=== PATIENT | female | born 1980 | race Caucasian/White ===

== ENCOUNTER → 2017-08-14 | Outpatient (CLI) | payer BC, OTHER ==
[~2017-08-14] MED LIST: CYCL10TA9 PO; MODA200T PO; MULT-974 PO; NAPR-243 PO; SERT50TA PO
--- NOTE | 2017-08-14 22:35 | Diagnostic Imaging Report ---
Bilateral diagnostic mammogram. Tomography is performed. The current study was also evaluated with a Computer Aided Detection (CAD) system. COMPARISON: Left breast mammogram from 02/11/2015. No comparison on the right side. INDICATION: Left breast pain. FINDINGS: The breasts are composed of extremely dense parenchyma which would decrease mammographic sensitivity. Area of asymmetry in the upper aspect of the MLO view demonstrates no definite underlying abnormality based on focal compression view. No definite mass, architectural distortion, or suspicious cluster of calcifications. IMPRESSION: Extremely dense breasts with no definite underlying mass. Ultrasound evaluation pending. ACR BI-RADS Category 0: Incomplete. (Needs additional imaging evaluation). Result letter will be mailed to the patient. Note: At least 10% of breast cancer is not imaged by mammography. Dictated by: Dictated on workstation # [id number]
--- NOTE | 2017-08-14 22:57 | Diagnostic Imaging Report ---
EXAM: Left breast ultrasound. INDICATION: Left chest pain. FINDINGS: The 4 quadrants and central retroareolar regions of the left breast were scanned with no definite abnormality seen. IMPRESSION: Negative study. Clinical followup of the area of pain recommended. BI-RADS 1. ACR BI-RADS Category 1: Negative. Result letter will be mailed to the patient. Note: At least 10% of breast cancer is not imaged by mammography. Dictated by: Dictated on workstation # [id number]
== END ==
LOC: RAD 08:38
PROVIDERS: ATTEND Nurse Practitioner Family
DX: R92.2 Inconclusive mammogram (principal); N64.4 Mastodynia
CPT/HCPCS: 76641; 77066

== ENCOUNTER 2023-02-24 21:24 | Emergency (ER) | payer BC ==
[~2023-02-24 21:24] MED LIST changes: +FLUO40CA12 PO
--- NOTE | 2023-02-24 21:59 | ED General ---
General Stated Complaint: SOA Source of Information: Patient, Other (MOTHER) History of Present Illness Date Seen by Provider: Feb 24, 2023 Time Seen by Provider: 21:50 Allergies and Home Medications Allergies Coded Allergies: Penicillins (Unverified Allergy, Severe, 06/24/14) ANAPHYLAXIS Patient Home Medication List Cyclobenzaprine HCl (Cyclobenzaprine HCl) 10 Mg Tablet, 10 MG PO Q8H PRN for SPASMS Prescribed by: BRISA CID on 02/24/232258 Cyclobenzaprine Hcl (Cyclobenzaprine Hcl) 10 Mg Tablet, 1 EACH PO Q8HR Prescribed by: BRISA CID on 06/24/142116 Fluoxetine HCl (Prozac) 40 Mg Capsule, 80 MG PO DAILY, (Reported) Entered as Reported by: PEGGY PENNY on 10/17/191720 Ketorolac Tromethamine (Ketorolac Tromethamine) 10 Mg Tablet, 10 MG PO Q6H Prescribed by: BRISA CID on 02/24/232258 Modafinil (Provigil) 200 Mg Tablet, 200 MG PO DAILY, (Reported) Entered as Reported by: HEIDE QUIGLEY on 06/24/142141 Multivitamin (Multi Vitamin Daily) 1 Each Tablet, 1 EACH PO DAILY, (Reported) Entered as Reported by: HEIDE QUIGLEY on 06/24/142141 Naproxen (Naprosyn) 500 Mg Tablet, 1 EACH PO TID PRN for PAIN Prescribed by: BRISA CID on 06/24/142116 Past Hrdpuof-Ovrjdg-Djfnko Hx Seasonal Allergies Seasonal Allergies: Yes Past Medical History Surgeries: Yes (LEFT SHOULDER 2018; DX LAP 2010; DENTAL SX 2018) Hysterectomy, Orthopedic Respiratory: No Cardiac: No Hypotension Neurological: Yes ("BORDERLINE" NARCOLEPSY) 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 oz. 54.767369sh; 22.03 BMI Method:Stated Progress/Results/Core Measures Suspected Sepsis SIRS Temperature: Pulse: Respiratory Rate: Blood Pressure / Mean: Results/Orders My Orders Orders - BRISA CID DO Ed Iv/Invasive Line Start (02/24/23 21:57) Ekg Tracing (02/24/23 21:57) Monitor-Rhythm Ecg Trace Only (02/24/23 21:57) Chest 1 View, Ap/Pa Only (02/24/23 21:57) Orphenadrine Inj (Ed Only) (Norflex Inje (02/24/23 23:00) Ketorolac Injection (Toradol Injection) (02/24/23 23:00) Diphenhydramine Injection (Benadryl Inje (02/24/23 23:00) Vital Signs/I&O 02/24/23 21:40 Temp 37.0 Pulse 79 Resp 20 B/P (MAP) 115/64 (81) Pulse Ox 99 O2 Delivery Room Air Capillary Refill : Departure Impression Primary Impression: Musculoskeletal pain Disposition: HOME, SELF-CARE Condition: Stable Departure-Patient Inst. Decision time for Depature: 22:57 Referrals: SANTINO CARRENO (PCP) Primary Care Physician Patient Instructions: Using Heat for Pain, Muscle and Bone Pain (DC), Muscle Strain ED Add. Discharge Instructions: MOIST HEAT TO SORE AREAS AT 20 MINUTE INTERVALS FOLLOW UP WITH YOUR DR IN 3-4 DAYS IF NO BETTER, RETURN TO ER IF WORSE Scripts Cyclobenzaprine HCl (Cyclobenzaprine HCl) 10 Mg Tablet 10 MG PO Q8H PRN for SPASMS, #15 TAB 0 Refills Prov: BRISA CID DO 02/24/23 Ketorolac Tromethamine (Ketorolac Tromethamine) 10 Mg Tablet 10 MG PO Q6H for Pain, #15 TAB Prov: BRISA CID DO 02/24/23 Work/School Note: Work Release Form Date Seen in the Emergency Department: Feb 24, 2023 Return to Work: Feb 27, 2023 Restrictions: No Restrictions BRISA CID DO Feb 24, 2023 21:59
[2023-02-24] MEDS ORDERED: CYCL10TA25 PO (22:59)
[2023-02-24] MEDS ORDERED: KETO10TA PO (22:59)
[2023-02-24] MEDS ORDERED: KETOROLAC 60 MG/2 ML VIAL IM ONE (23:00)
[2023-02-24] MEDS ORDERED: diphenhydrAMINE 50 MG/ML INJ (BENADRYL) IM ONE (23:00)
[2023-02-24] MEDS ORDERED: ORPHENADRINE 60 MG/2 ML (NORFLEX) AMP (ED ONLY) IM ONE (23:00)
[2023-02-24] MEDS ORDERED: RX-CYCLOBENZAPRINE 10 MG (FLEXERIL) TAB PPK#3 PO STA (23:22)
[2023-02-24] MEDS ORDERED: RX-NAPROXEN (NAPROSYN) 250 MG TAB PPK#4 PO STA (23:22)
[2023-02-24 23:34] VITALS: BP 110/66
--- NOTE | 2023-02-25 09:00 | Diagnostic Imaging Report ---
INDICATION: Chest pain and dyspnea. Time of Exam: 10:09 AM No prior studies are available for comparison. Heart size is normal. Lungs are clear. No infiltrates are detected. No effusion or pneumothorax is detected. IMPRESSION: No acute cardiopulmonary process is detected. Dictated by: Dictated on workstation # [id number]
== END 2023-02-24 23:35 | disposition home or self-care (01) ==
LOC: EDUNIT# 21:24 → ER 21:26
DX: M79.18 Myalgia, other site (principal); R06.02 Shortness of breath; Z28.310 Unvaccinated for COVID-19
CPT/HCPCS: 71045; 93005; 96372